=== PATIENT | male | born 2000 | race Caucasian/White ===

== ENCOUNTER 2024-12-20 07:52 | Outpatient (REF) | payer BC, SELFPAY ==
--- NOTE | ~2024-12-20 | US_ITS ---
EXAMINATION: US SCROTUM CLINICAL INFORMATION: Lump, left testicle. COMPARISON: None available. TECHNIQUE: A sonogram of the scrotum was performed assessing rea-scale appearance and color Doppler flow. Spectral Doppler analysis of the arterial and venous flow were performed in the testes bilaterally. FINDINGS: RIGHT: Right testicle measures 4.7 x 2.2 x 3.2 cm, volume 17 mL. No focal testicular parenchymal lesions are visualized. Spectral Doppler analysis of the arterial and venous flow is normal in the right testis. Right epididymal head is normal in size. No right hydrocele or varicocele is seen. Right epididymal Doppler flow is normal. LEFT: Left testicle measures 5.0 x 2.3 x 3.2 cm, volume 19 mL. No focal testicular parenchymal lesions are visualized. Spectral Doppler analysis of the arterial and venous flow is normal in the left testis. Left epididymal head is normal in size. No left hydrocele or varicocele is seen. Left epididymal Doppler flow is normal. US/US scrotum IMPRESSION: Normal testicular ultrasound. Electronically signed by: Josh Jones MD 12/21/2024 12:35 PM EDT
--- OUTSIDE RECORDS SUMMARY | 2024-12-20 07:58 | XMS_ITS | Data Portability ---
Author Organization [place] - .[facility], [facility] Address [address] [place] [address] Care Team Providers Care Membership Advisor Name Role Phone FRANCISCA DIAMOND Primary Care Provider Assessment No assessment recorded. Plan of Treatment Reminders Order Date Submit Date Provider Last Modified By Organization Details Last Modified Time Details Appointments Physical Examinati on 2024 02:00P Rian Jarrett MD Not available Not available Not available Lab enteric bacteria, organism specific culture, stool 2023 024 [facility], [address], [place], [address], 04/10/2024 07:36:33 calprotec tin, stool 2023 024 [facility], [address], [place], [address], 04/10/2024 13:44:11 HIV 1+2 AB + HIV 1 p24 Ag, qualitati ve immunoass ay, serum 2023 024 [facility], [address], [place], [address], 03/31/2024 03:36:30 chlamydia + gonorrhea RNA, QL, unspecifi ed specimen 2023 024 [facility], [address], [place], [address], 03/31/2024 13:06:09 hsv (1+2) igg Ab, serum 2023 [facility], [address], [place], [address], 03/31/2024 11:51:49 syphilis Ab, igg 2023 [facility], [address], [place], [address], 03/31/2024 03:53:22 hepatitis B surface Ab, quantitat sam, serum 2023 [facility], [address], [place], [address], 03/31/2024 03:53:28 CMP, serum or plasma 2023 [facility], [address], [place], [address], 03/31/2024 03:53:11 CBC w/ auto diff [facility]23 [facility], [address], [place], [address], 03/31/2024 01:42:20 lipid panel, serum 2023 [facility], [address], [place], [address], 03/31/2024 03:53:14 TSH, serum or plasma [facility]23 [facility], [address], [place], [address], 03/31/2024 03:24:45 urinalysi s, complete 2023 [facility], [address], [place], [address], 03/30/2024 23:54:15 HbA1c (hemoglob in A1c), blood 2023 024 [facility], [address], [place], [address], 03/31/2024 05:47:53 hepatitis C virus Ab, serum 2023 024 [facility], [address], [place], [address], 03/31/2024 03:53:31 enteric bacteria, organism specific culture, stool 2022 023 [facility], [address], [place], [address], 09/16/2022 10:25:14 calprotec tin, stool 2022 023 [facility], [address], [place], [address], 09/19/2022 10:55:59 TSH, serum or plasma 2022 023 [facility], [address], [place], [address], 09/10/2022 21:50:18 ESR (erythroc yte sedimenta tion rate), blood 2022 023 [facility], [address], [place], [address], 09/10/2022 22:00:41 C-reactiv e protein, quantitat sam, serum or plasma 2022 023 [facility], [address], [place], [address], 09/10/2022 21:50:15 pancreati c elastase, stool 2022 023 [facility], [address], [place], [address], 09/19/2022 17:04:45 CBC w/ auto diff 2022 023 [facility], [address] [place], [address], 09/10/2022 21:34:36 tissue transglut aminase iga Ab, serum 2022 023 [facility], [address], [place], [address], 09/12/2022 12:04:10 tissue transglut aminase igg Ab, serum 2022 023 [facility], [address] [place], [address], 09/12/2022 12:04:18 Referral None recorded. Procedures None recorded. Surgeries None recorded. Imaging XR, abdomen 2022 023 [facility], [address] [facility], [place], [address], 09/10/2022 16:49:32 Medication Orders None recorded. Patient TargetsNo targets recorded. Patient InstructionsNo instructions recorded. Reason for Referral None Reported. Results Created Date Observation Date Name Description Value Unit Range Abnormal Flag Note LastModifiedBy Organization Detail LastModifiedTime 09/10/1909/10/2022 CBC WITH DIFFE RENTI AL white blood cells 9.78 10^3/ uL 3.60 - 9.90 normal Not Available [facility] [address], [place], [address], 09/10/2022 21:34:35 09/10/19 23 09/10/2022 CBC WITH DIFFE RENTI AL red blood cells 5.52 10^6/ uL 4.32 - 5.71 normal Not Available [facility] [address] [place], [address], 09/10/2022 21:34:35 09/10/19 23 09/10/2022 CBC WITH DIFFE RENTI AL NRBC % 0.0 NRBC/ 100_W BC <1.0 normal Not Available [facility] [address], [address], 09/10/2022 21:34:35 09/10/19 23 09/10/2022 CBC WITH DIFFE RENTI AL hemoglobin 16.6 g/dL 13.0 - 16.6 normal Not Available [facility] [address] [place], [address], 09/10/2022 21:34:35 09/10/19 23 09/10/2022 CBC WITH DIFFE RENTI AL hematocrit 48.1 % 40.0 - 49.0 normal Not Available [facility] [address] [place], [address], 09/10/2022 21:34:35 09/10/19 23 09/10/2022 CBC WITH DIFFE RENTI AL platelet count 379 10^3/ uL 158 - 384 normal Not Available [facility] [address], [address], 09/10/2022 21:34:35 09/10/19 23 09/10/2022 CBC WITH DIFFE RENTI AL MCV 87.1 fL 76.0 - 98.0 normal Not Available [facility] [address] [place], [address], 09/10/2022 21:34:35 09/10/19 23 09/10/2022 CBC WITH DIFFE RENTI AL MCH 30.1 pg 26.7 - 33.2 normal Not Available [facility] [address] [place], [address], 09/10/2022 21:34:35 09/10/19 23 09/10/2022 CBC WITH DIFFE RENTI AL MCHC 34.5 g/dL 32.3 - 36.1 normal Not Available [facility] [address] [place], [address], 09/10/2022 21:34:35 09/10/19 23 09/10/2022 CBC WITH DIFFE RENTI AL RDW-CV 12.8 % 12.0 - 14.8 normal Not Available [facility] [address] [place] [address], [address], 09/10/2022 21:34:35 09/10/19 23 09/10/2022 CBC WITH DIFFE RENTI AL MPV 8.5 fL 8.9 - 12.5 low Not Available [facility] [address] [place] [address], [address], 09/10/2022 21:34:35 09/10/19 23 09/10/2022 CBC WITH DIFFE RENTI AL neutrophils % 54.4 % 38.0 - 73.0 normal Not Available [facility] [address] [place] [address], [address], 09/10/2022 21:34:35 09/10/19 23 09/10/2022 CBC WITH DIFFE RENTI AL lymphocyte % 27.3 % 17.0 - 48.0 normal Not Available [facility] [address] [place] [address], [address], 09/10/2022 21:34:35 09/10/19 23 09/10/2022 CBC WITH DIFFE RENTI AL monocyte % 15.2 % 6.0 - 13.0 high Not Available [facility] [address] [place] [address], [address], 09/10/2022 21:34:35 09/10/19 23 09/10/2022 CBC WITH DIFFE RENTI AL eosinophil auto % 1.5 % 1.0 - 8.0 normal Not Available [facility] [address] [place] [address], [address], 09/10/2022 21:34:35 09/10/19 23 09/10/2022 CBC WITH DIFFE RENTI AL basophil auto % 0.7 % 0.0 - 1.0 normal Not Available [facility] [address] [place] [address], [address], 09/10/2022 21:34:35 09/10/19 23 09/10/2022 CBC WITH DIFFE RENTI AL neutrophil auto absolute 5.31 10^3/ uL 1.66 - 6.42 normal Not Available [facility] [address] [place], [address], 09/10/2022 21:34:35 09/10/19 23 09/10/2022 CBC WITH DIFFE RENTI AL lymphocytes auto absolute 2.67 10^3/ uL 0.90 - 3.20 normal Not Available [facility] [address] [place], [address], 09/10/2022 21:34:35 09/10/19 23 09/10/2022 CBC WITH DIFFE RENTI AL monocytes auto absolute 1.49 10^3/ uL 0.29 - 0.86 high Not Available [facility] [address] [place], [address], 09/10/2022 21:34:35 09/10/19 23 09/10/2022 CBC WITH DIFFE RENTI AL eosinophils auto absolute 0.15 10^3/ uL 0.04 - 0.56 normal Not Available [facility] [address], [address], 09/10/2022 21:34:35 09/10/19 23 09/10/2022 CBC WITH DIFFE RENTI AL basophil auto absolute 0.07 10^3/ uL 0.01 - 0.07 normal Not Available [facility] [address] [place], [address], 09/10/2022 21:34:35 09/10/19 23 09/10/2022 C-KERON CTIVE PROTE IN C-reactive protein 20.6 mg/L <5.0 high Not Available [facility] b [address] [place], [address], 09/10/2022 21:50:15 09/10/19 23 09/10/2022 TSH REFLE X FT4 TSH 1.320 uIU/m L 0.270 - 4.200 normal Not Available [facility] [address] [place], [place] [address], [address], 09/10/2022 21:50:18 09/10/19 23 09/10/2022 SED RATE (ESR) ESR 23 mm/HR 0 - 10 high Not Available [facility] [address] [place] [address], [address], 09/10/2022 22:00:41 09/10/19 23 09/12/2022 TISSU E TRANS GLUTA BEATA E AB IGA tissue transglutami nase Ab IgA <0.5 U/mL <15.0 normal Value Inter preta tion <15.0 Antib kirti Not Detec denae > or = 15.0 Antib kirti Detec denae Not Available [facility] [address] [place] [address], [address], 09/12/2022 12:04:10 09/10/19 23 09/12/2022 TISSU E TRANS GLUTA BEATA E AB IGG tissue transglutami nase Ab IgG <0.8 U/mL <15.0 normal Value Inter preta tion <15.0 Antib kirti Not Detec denae > or = 15.0 Antib kirti Detec denae Not Available [facility] [address] [place] [address], [address], 09/12/2022 12:04:18 09/12/19 23 09/15/2022 GASTR OINTE DONTE L PANEL RT-PC R campylobacte r(jejuni, coli & upsaliensis DETECT ED not detect ed critical abnormal Flores d on 2022 at 9:34A M to NELY dickerson Strel ec with read back confi rmati on by Hamlet Gilliland repor denae the [facility] tment of Healt h Case #: [id number] 308 2022 5:20 PM Not Available [facility] [address] [place] [address], [place], [address], 09/20/2022 17:21:09 09/12/19 23 09/15/2022 GASTR OINTE DONTE L PANEL RT-PC R clostridium difficile (toxin A/B) NOT DETECT ED not detect ed normal Not Available [facility] [address], [address], 09/20/2022 17:21:09 09/12/19 23 09/15/2022 GASTR OINTE DONTE L PANEL RT-PC R plesiomonas shigelloides NOT DETECT ED not detect ed normal Not Available [facility] [address], [address], 09/20/2022 17:21:09 09/12/19 23 09/15/2022 GASTR OINTE DONTE L PANEL RT-PC R salmonella NOT DETECT ED not detect ed normal Not Available [facility] [address], [address], 09/20/2022 17:21:09 09/12/19 23 09/15/2022 GASTR OINTE DONTE L PANEL RT-PC R vibrio(parah aemolyticus & vulnificus) NOT DETECT ED not detect ed normal Not Available [facility] [address], [address], 09/20/2022 17:21:09 09/12/19 23 09/15/2022 GASTR OINTE DONTE L PANEL RT-PC R vibrio cholerae NOT DETECT ED not detect ed normal Not Available [facility] [address], [address], 09/20/2022 17:21:09 09/12/19 23 09/15/2022 GASTR OINTE DONTE L PANEL RT-PC R yersinia enterocoliti ca NOT DETECT ED not detect ed normal Not Available [facility] [address], [address], 09/20/2022 17:21:09 09/12/19 23 09/15/2022 GASTR OINTE DONTE L PANEL RT-PC R enteroaggreg ative E. coli (eaec) NOT DETECT ED not detect ed normal Not Available [facility] [address], [address], 09/20/2022 17:21:09 09/12/19 23 09/15/2022 GASTR OINTE DONTE L PANEL RT-PC R enterotoxige josi E. coli (etec) lt/st DETECT ED not detect ed abnormal Not Available [facility] [address] [place], [address], 09/20/2022 17:21:09 09/12/19 23 09/15/2022 GASTR OINTE DONTE L PANEL RT-PC R shiga-like toxin-produc ting E.coli(stec) stx1/2 DETECT ED not detect ed critical abnormal Flores d on 2022 at 9:35A M to NELY Don ec with read back confi rmati on by Hamlet Gilliland [facility] Case: [id number] 2022 5:20 PM Not Available [facility] [address], [address], 09/20/2022 17:21:09 09/12/19 23 09/15/2022 GASTR OINTE DONTE L PANEL RT-PC R shigella/ent eroinvasive E.coli (eiec) NOT DETECT ED not detect ed normal Not Available [facility] [address] [place], [address], 09/20/2022 17:21:09 09/12/19 23 09/15/2022 GASTR OINTE DONTE L PANEL RT-PC R cryptosporid ium NOT DETECT ED not detect ed normal Not Available [facility] [address], [address], 09/20/2022 17:21:09 09/12/19 23 09/15/2022 GASTR OINTE DONTE L PANEL RT-PC R cyclospora cayetanensis NOT DETECT ED not detect ed normal Not Available [facility] [address], [address], 09/20/2022 17:21:09 09/12/19 23 09/15/2022 GASTR OINTE DONTE L PANEL RT-PC R entamoeba histolytica NOT DETECT ED not detect ed normal Not Available [facility] [address], [address], 09/20/2022 17:21:09 09/12/19 23 09/15/2022 GASTR OINTE DONTE L PANEL RT-PC R giardia lamblia NOT DETECT ED not detect ed normal Not Available [facility] [address], [address], 09/20/2022 17:21:09 09/12/19 23 09/15/2022 GASTR OINTE DONTE L PANEL RT-PC R adenovirus F 40/41 NOT DETECT ED not detect ed normal Not Available [facility] [address], [address], 09/20/2022 17:21:09 09/12/19 23 09/15/2022 GASTR OINTE DONTE L PANEL RT-PC R astrovirus NOT DETECT ED not detect ed normal Not Available [facility] [address], [address], 09/20/2022 17:21:09 09/12/19 23 09/15/2022 GASTR OINTE DONTE L PANEL RT-PC R norovirus GI/gii DETECT ED not detect ed abnormal Not Available [facility] [address], [address], 09/20/2022 17:21:09 09/12/19 23 09/15/2022 GASTR OINTE DONTE L PANEL RT-PC R rotavirus A NOT DETECT ED not detect ed normal Not Available [facility] [address], [address], 09/20/2022 17:21:09 09/12/19 23 09/15/2022 GASTR OINTE DONTE L PANEL RT-PC R sapovirus(I, II,IV & V) NOT DETECT ED not detect ed normal Not Available [facility] [address] [place], [address], 09/20/2022 17:21:09 09/12/19 23 09/15/2022 GASTR OINTE DONTE L PANEL RT-PC R E.coli O157 NOT DETECT ED not detect ed normal Not Available [facility] [address] [facility], [place], [address], 09/20/2022 17:21:09 09/12/19 23 09/19/2022 CALPR OTECT IN STOOL calprotectin , stool 3000 mcg/g high Refer ence Range : <50 Melisa l 50-12 0 Borde rline >120 [place] denae Calpr otect in in Crohn 's disea se and ulcer ative colit is can be five to sever al thous and times above the refer ence popul ation (50 mcg/g or less) . Level s are usual ly 50 mcg/g or less in healt hy patie nts and with irrit able bowel syndr ome. Repea t testi ng in 4-6 weeks is seth balderas for borde rline value s. Not Available [facility] [address], [place], [address], 09/19/2022 10:55:58 09/12/19 23 09/19/2022 PANCR EATIC ELAST ASE-1 STOOL pancreatic elastase-1 >500 mcg/g Adult and Pedia tric Refer ence Range s for Pancr eatic Elast ase-1 : Melisa l: >200 mcg/g Moder ate Pancr eatic Insuf ficie ncy: 100-2 00 mcg/g Sever e Pancr eatic Insuf ficie ncy: <100 mcg/g Elast ase-1 (E-1) assay resul ts are expre ssed in mcg/g , which repre sent mcg E1/g feces . It is not timi candelario to inter rupt enzym e subst ituti on thera py. Not Available [facility] [address], [place], [address], 09/19/2022 17:04:45 09/26/19 23 09/28/2022 CALPR OTECT IN STOOL calprotectin , stool 77 ug/g <50 high <50 ug/g - Melisa l 50 - 120 ug/g - Borde rline >120 ug/g - [place] denae Re-ev aluat ion of borde rline fecal calpr otect in level s after 4-6 weeks is recom taj d to deter mine the infla mmato ry statu s. This decis ion shoul d be made by the clini claus in conju nctio n with the patie nt's clini lucero sympt oms, medic al histo ry, and other clini lucero and labor atory findi ngs. Not Available [facility] [address], [place], [address], 09/29/2022 13:22:46 09/26/19 23 09/29/2022 GASTR OINTE DONTE L PANEL RT-PC R campylobacte r(jejuni, coli & upsaliensis DETECT ED not detect ed critical abnormal Not Available [facility] [address], [place], [address], 09/29/2022 20:59:35 09/26/19 23 09/29/2022 GASTR OINTE DONTE L PANEL RT-PC R clostridium difficile (toxin A/B) NOT DETECT ED not detect ed normal Not Available [facility] [address], [address], 09/29/2022 20:59:35 09/26/19 23 09/29/2022 GASTR OINTE DONTE L PANEL RT-PC R plesiomonas shigelloides NOT DETECT ED not detect ed normal Not Available [facility] [address], [address], 09/29/2022 20:59:35 09/26/19 23 09/29/2022 GASTR OINTE DONTE L PANEL RT-PC R salmonella NOT DETECT ED not detect ed normal Not Available [facility] [address], [address], 09/29/2022 20:59:35 09/26/19 23 09/29/2022 GASTR OINTE DONTE L PANEL RT-PC R vibrio(parah aemolyticus & vulnificus) NOT DETECT ED not detect ed normal Not Available [facility] [address] [address] [place], [address], 09/29/2022 20:59:35 09/26/19 23 09/29/2022 GASTR OINTE DONTE L PANEL RT-PC R vibrio cholerae NOT DETECT ED not detect ed normal Not Available [facility] [address], [address], 09/29/2022 20:59:35 09/26/19 23 09/29/2022 GASTR OINTE DONTE L PANEL RT-PC R yersinia enterocoliti ca NOT DETECT ED not detect ed normal Not Available [facility] [address], [address], 09/29/2022 20:59:35 09/26/19 23 09/29/2022 GASTR OINTE DONTE L PANEL RT-PC R enteroaggreg ative E. coli (eaec) NOT DETECT ED not detect ed normal Not Available [facility] [address] [address] [place], [address], 09/29/2022 20:59:35 09/26/19 23 09/29/2022 GASTR OINTE DONTE L PANEL RT-PC R enteropathog enic E. coli (epec) NOT DETECT ED not detect ed normal Not Available [facility] [address] [place], [place] [address], [address], 09/29/2022 20:59:35 09/26/19 23 09/29/2022 GASTR OINTE DONTE L PANEL RT-PC R enterotoxige josi E. coli (etec) lt/st NOT DETECT ED not detect ed normal Not Available [facility] [address], [address], 09/29/2022 20:59:35 09/26/19 23 09/29/2022 GASTR OINTE DONTE L PANEL RT-PC R shiga-like toxin-produc ting E.coli(stec) stx1/2 DETECT ED not detect ed critical abnormal Not Available [facility] [address], [address], 09/29/2022 20:59:35 09/26/19 23 09/29/2022 GASTR OINTE DONTE L PANEL RT-PC R shigella/ent eroinvasive E.coli (eiec) NOT DETECT ED not detect ed normal Not Available [facility] [address], [address], 09/29/2022 20:59:35 09/26/19 23 09/29/2022 GASTR OINTE DONTE L PANEL RT-PC R cryptosporid ium NOT DETECT ED not detect ed normal Not Available [facility] [address], [address], 09/29/2022 20:59:35 09/26/19 23 09/29/2022 GASTR OINTE DONTE L PANEL RT-PC R cyclospora cayetanensis NOT DETECT ED not detect ed normal Not Available [facility] [address], [address], 09/29/2022 20:59:35 09/26/19 23 09/29/2022 GASTR OINTE DONTE L PANEL RT-PC R entamoeba histolytica NOT DETECT ED not detect ed normal Not Available [facility] [address], [address], 09/29/2022 20:59:35 09/26/19 23 09/29/2022 GASTR OINTE DONTE L PANEL RT-PC R giardia lamblia NOT DETECT ED not detect ed normal Not Available [facility] [address], [address], 09/29/2022 20:59:35 09/26/19 23 09/29/2022 GASTR OINTE DONTE L PANEL RT-PC R adenovirus F 40/41 NOT DETECT ED not detect ed normal Not Available [facility] [address], [address], 09/29/2022 20:59:35 09/26/19 23 09/29/2022 GASTR OINTE DONTE L PANEL RT-PC R astrovirus NOT DETECT ED not detect ed normal Not Available [facility] [address], [address], 09/29/2022 20:59:35 09/26/19 23 09/29/2022 GASTR OINTE DONTE L PANEL RT-PC R norovirus GI/gii NOT DETECT ED not detect ed normal Not Available [facility] [address], [address], 09/29/2022 20:59:35 09/26/19 23 09/29/2022 GASTR OINTE DONTE L PANEL RT-PC R rotavirus A NOT DETECT ED not detect ed normal Not Available [facility] [address], [address], 09/29/2022 20:59:35 09/26/19 23 09/29/2022 GASTR OINTE DONTE L PANEL RT-PC R sapovirus(I, II,IV & V) NOT DETECT ED not detect ed normal Not Available [facility] [address], [address], 09/29/2022 20:59:35 03/30/20 24 03/30/2024 URINA LYSIS W/CHILO WENDY PIC color LIGHT- YELLOW colorl ess-ye llow normal Not Available [facility] [address], [address], 03/30/2024 23:54:14 03/30/20 24 03/30/2024 URINA LYSIS W/CHILO WENDY PIC clarity CLEAR clear- SL. cloudy normal Not Available [facility] [address], [place], [address], 03/30/2024 23:54:14 03/30/20 24 03/30/2024 URINA LYSIS W/CHILO WENDY PIC pH, urine 6.5 4.5-8. 0 normal Not Available [facility] [address], [place], [address], 03/30/2024 23:54:14 03/30/20 24 03/30/2024 URINA LYSIS W/CHILO WENDY PIC specific gravity 1.017 1.000- 1.030 normal Not Available [facility] [address], [address], 03/30/2024 23:54:14 03/30/20 24 03/30/2024 URINA LYSIS W/CHILO WENDY PIC protein NEGATI VE mg/dL negati ve/tra ce normal Not Available [facility] [address], [address], 03/30/2024 23:54:14 03/30/20 24 03/30/2024 URINA LYSIS W/CHILO WENDY PIC glucose 0 mg/dL 0-69 normal Not Available [facility] [address], [address], 03/30/2024 23:54:14 03/30/20 24 03/30/2024 URINA LYSIS W/CHILO [facility] P[facility] ketones NEGATI VE mg/dL negati ve normal Not Available [facility] [address], [place], [address], 03/30/2024 23:54:14 03/30/20 24 03/30/2024 URINA LYSIS W/[facility]O [facility] P[facility] leukocyte esterase 0 daniel/u L 0-74 normal Not Available [facility] [address], [place], [address], 03/30/2024 23:54:14 03/30/20 24 03/30/2024 URINA LYSIS W/CHILO W[facility]Y PIC blood 0 mg/dL 0-0.05 normal Not Available [facility] [address], [address], 03/30/2024 23:54:14 03/30/20 24 03/30/2024 URINA LYSIS W/CHILO WENDY PIC nitrite NEGATI VE negati ve normal Not Available [facility] [address] [place], [address], 03/30/2024 23:54:14 03/30/20 24 03/30/2024 URINA LYSIS W/CHILO WENDY PIC bilirubin 0 mg/dL 0-0.4 normal Not Available [facility] [address] [place], [address], 03/30/2024 23:54:14 03/30/20 24 03/30/2024 URINA LYSIS W/CHILO WENDY PIC urobilinogen 0 E.U./ dL 0-1 normal Not Available [facility] [address] [place], [address], 03/30/2024 23:54:14 03/30/20 24 03/30/2024 URINA LYSIS W/CHILO WENDY PIC urine white blood cells 0-5 /hpf 0-5 normal Not Available [facility] [address] [place], [address], 03/30/2024 23:54:14 03/30/20 24 03/30/2024 URINA LYSIS W/CHILO WENDY PIC urine red blood cells 0-3 /hpf 0-3 normal Not Available [facility] [address] [place], [address], 03/30/2024 23:54:14 03/30/20 24 03/30/2024 URINA LYSIS W/CHILO WENDY PIC epithelial cells 0 /hpf 0-6 normal Not Available [facility] [address] [place], [address], 03/30/2024 23:54:14 03/30/20 24 03/30/2024 URINA LYSIS W/CHILO WENDY PIC bacteria 0 /hpf 0-few normal Not Available [facility] [address] [place], [address], 03/30/2024 23:54:14 03/30/20 24 03/30/2024 URINA LYSIS W/CHILO WENDY PIC mucus threads FEW /lpf none/f ew normal Not Available [facility] [address] [place], [address], 03/30/2024 23:54:14 03/30/20 24 03/31/2024 CBC WITH DIFFE RENTI AL white blood cells 5.50 10^3/ uL 3.60 - 10.50 normal Not Available [facility] [address] [place], [address], 03/31/2024 01:42:20 03/30/20 24 03/31/2024 CBC WITH DIFFE RENTI AL red blood cells 5.56 10^6/ uL 4.32 - 5.71 normal Not Available [facility] [address] [place], [address], 03/31/2024 01:42:20 03/30/20 24 03/31/2024 CBC WITH DIFFE RENTI AL NRBC % 0.0 NRBC/ 100_W BC <1.0 normal Not Available [facility] [address] [place], [address], 03/31/2024 01:42:20 03/30/20 24 03/31/2024 CBC WITH DIFFE RENTI AL hemoglobin 16.7 g/dL 13.0 - 16.6 high Not Available [facility] [address] [place], [address], 03/31/2024 01:42:20 03/30/20 24 03/31/2024 CBC WITH DIFFE RENTI AL hematocrit 50.6 % 40.0 - 49.0 high Not Available [facility] [address] [place], [address], 03/31/2024 01:42:20 03/30/2003/31/2024 CBC WITH DIFFE RENTI AL platelet count 297 10^3/ uL 140 - 400 normal Not Available [facility] [place], [address], 03/31/2024 01:42:20 03/30/20 24 03/31/2024 CBC WITH DIFFE RENTI AL MCV 91.0 fL 76.0 - 98.0 normal Not Available [facility] [address] [place], [address], 03/31/2024 01:42:20 03/30/20 24 03/31/2024 CBC WITH DIFFE RENTI AL MCH 30.0 pg 26.7 - 33.2 normal Not Available [facility] [place], [address], 03/31/2024 01:42:20 03/30/20 24 03/31/2024 CBC WITH DIFFE RENTI AL MCHC 33.0 g/dL 32.3 - 36.1 normal Not Available [facility] [place], [address], 03/31/2024 01:42:20 03/30/2003/31/2024 CBC WITH DIFFE RENTI AL RDW-CV 12.9 % 12.0 - 14.8 normal Not Available [facility] [place], [address], 03/31/2024 01:42:20 03/30/20 24 03/31/2024 CBC WITH DIFFE RENTI AL MPV 9.2 fL 8.9 - 12.5 normal Not Available [facility] [address], [place], [address], 03/31/2024 01:42:20 03/30/20 24 03/31/2024 CBC WITH DIFFE RENTI AL neutrophils % 41.3 % not estab. normal Not Available [facility] [address] [place], [address], 03/31/2024 01:42:20 03/30/20 24 03/31/2024 CBC WITH DIFFE RENTI AL lymphocyte % 46 % not estab. normal Not Available [facility] [place], [address], 03/31/2024 01:42:20 03/30/20 24 03/31/2024 CBC WITH DIFFE RENTI AL monocyte % 8.9 % not estab. normal Not Available [facility] [address] [place], [address], 03/31/2024 01:42:20 03/30/20 24 03/31/2024 CBC WITH DIFFE RENTI AL eosinophil auto % 2.9 % not estab. normal Not Available [facility] [address] [place], [address], 03/31/2024 01:42:20 03/30/20 24 03/31/2024 CBC WITH DIFFE RENTI AL basophil auto % 0.7 % not estab. normal Not Available [facility] [place] [place], [address], 03/31/2024 01:42:20 03/30/20 24 03/31/2024 CBC WITH DIFFE RENTI AL neutrophil auto absolute 2.3 10^3/ uL 1.7 - 6.4 normal Not Available [facility] [place], [address], 03/31/2024 01:42:20 03/30/20 24 03/31/2024 CBC WITH DIFFE RENTI AL lymphocytes auto absolute 2.5 10^3/ uL 0.9 - 3.2 normal Not Available [facility] [address] [place], [address], 03/31/2024 01:42:20 03/30/20 24 03/31/2024 CBC WITH DIFFE RENTI AL monocytes auto absolute 0.5 10^3/ uL 0.3 - 0.9 normal Not Available [facility] [address] [place], [address], 03/31/2024 01:42:20 03/30/20 24 03/31/2024 CBC WITH DIFFE RENTI AL eosinophils auto absolute 0.2 10^3/ uL 0.0 - 0.6 normal Not Available [facility] [address] [place], [address], 03/31/2024 01:42:20 03/30/20 24 03/31/2024 CBC WITH DIFFE RENTI AL basophil auto absolute 0.0 10^3/ uL 0.0 - 0.1 normal Not Available [facility] [address] [place], [address], 03/31/2024 01:42:20 03/30/2003/31/2024 TSH REFLE X FT4 TSH 2.180 uIU/m L 0.270 - 4.200 normal Not Available [facility] [address] [place], [address], 03/31/2024 03:24:45 03/30/20 24 03/31/2024 HIV SCREE N 4TH GENER ATION WRFX HIV duo NONREA CTIVE nonrea ctive normal Elecs ys HIV Duo is an elect mei milum inesc ence immun oassa y ECLIA and is perfo rmed on the Lindy e801 immun oassa y geena zer. Not Available [facility] [address], [place], [address], 03/31/2024 03:36:30 03/30/20 24 03/31/2024 COMPR EHENS SAM METAB OLIC PANEL glucose, fasting 90 mg/dL 70 - 99 normal This patie nt was fasti ng. Not Available [facility] [address], [place], [address], 03/31/2024 03:53:11 03/30/20 24 03/31/2024 COMPR EHENS SAM METAB OLIC PANEL blood urea nitrogen 16 mg/dL 9 - 25 normal Not Available [facility] [address], [place], [address], 03/31/2024 03:53:11 03/30/20 24 03/31/2024 COMPR EHENS SAM METAB OLIC PANEL creatinine 1.00 mg/dL 0.73 - 1.32 normal Not Available [facility] [address], [place], [address], 03/31/2024 03:53:11 03/30/20 24 03/31/2024 COMPR EHENS SAM METAB OLIC PANEL glomerular filtration rate 110 mL/mi n/1.7 3m^2 >=60 normal Medic al Direc tor's Note: Effec tive (05/31), [facility] uses the 2020 CKD-E PI creat inine equat ion witho ut a race facto r to calcu late and repor t eGFR resul ts. Not Available [facility] [address], [place], [address], 03/31/2024 03:53:11 03/30/20 24 03/31/2024 COMPR EHENS SAM METAB OLIC PANEL sodium 138 mmol/ L 136 - 145 normal Not Available [facility] [address] [place], [address], 03/31/2024 03:53:11 03/30/20 24 03/31/2024 COMPR EHENS SAM METAB OLIC PANEL potassium 4.2 mmol/ L 3.5 - 5.3 normal Not Available [facility] [address] [place], [address], 03/31/2024 03:53:11 03/30/20 24 03/31/2024 COMPR EHENS SAM METAB OLIC PANEL chloride 101 mmol/ L 98 - 107 normal Not Available [facility] [address] [place], [address], 03/31/2024 03:53:11 03/30/20 24 03/31/2024 COMPR EHENS SAM METAB OLIC PANEL carbon dioxide 25 mmol/ L 21 - 32 normal Not Available [facility] [address] [place], [address], 03/31/2024 03:53:11 03/30/20 24 03/31/2024 COMPR EHENS SAM METAB OLIC PANEL anion gap 12 (calc ) 7 - 15 normal Not Available [facility] [address] [place], [address], 03/31/2024 03:53:11 03/30/20 24 03/31/2024 COMPR EHENS SAM METAB OLIC PANEL calcium 10.2 mg/dL 8.7 - 10.3 normal Not Available [facility] [address] [place], [address], 03/31/2024 03:53:11 03/30/20 24 03/31/2024 COMPR EHENS SAM METAB OLIC PANEL total protein 7.8 g/dL 6.0 - 8.3 normal Not Available [facility] [address] [place], [address], 03/31/2024 03:53:11 03/30/20 24 03/31/2024 COMPR EHENS SAM METAB OLIC PANEL albumin 5.1 g/dL 3.5 - 5.2 normal Not Available [facility] [address] [place], [address], 03/31/2024 03:53:11 03/30/20 24 03/31/2024 COMPR EHENS SAM METAB OLIC PANEL total bilirubin 1.60 mg/dL <=1.20 high Not Available [facility] [address] [place], [address], 03/31/2024 03:53:11 03/30/20 24 03/31/2024 COMPR EHENS SAM METAB OLIC PANEL alkaline phosphatase 104 U/L 37 - 144 normal Not Available [facility] [address] [place], [address], 03/31/2024 03:53:11 03/30/20 24 03/31/2024 COMPR EHENS SAM METAB OLIC PANEL SGOT (AST) 20 U/L 0 - 40 normal Not Available [facility] [address] [place], [address], 03/31/2024 03:53:11 03/30/20 24 03/31/2024 COMPR EHENS SAM METAB OLIC PANEL SGPT (ALT) 19 U/L <41 normal Not Available [facility] [address] [place], [address], 03/31/2024 03:53:11 03/30/20 24 03/31/2024 LIPID PANEL cholesterol 198 mg/dL <200 normal Expec denae Value s: <200 mg/dL Adalgisa eable 200-2 40 mg/dL Borde rline >240 mg/dL High Risk Not Available [facility] [address] [place], [address], 03/31/2024 03:53:14 03/30/20 24 03/31/2024 LIPID PANEL HDLC 70 mg/dL A HDL level of >=60 mg/dL is consi dered prote ctive again st heart disea se and count s as a nega tive risk facto r. Its prese nce remov es one risk facto r from the total count . Not Available [facility] [address], [place], [address], 03/31/2024 03:53:14 03/30/20 24 03/31/2024 LIPID PANEL triglyceride 52 mg/dL <150 normal Expec denae Value s: <150 mg/dL Melisa l 150-1 99 mg/dL Borde rline 200-4 99 mg/dL High >=500 mg/dL Very High Not Available [facility] [address], [place], [address], 03/31/2024 03:53:14 03/30/2003/31/2024 LIPID PANEL calculated LDL 115 mg/dL 0 - 99 high Adalgisa able range <100 mg/dL for prima ry preve ntion ;<70 mg/dL for patie nts with CHD or diabe tic patie nts with > or = 2 CHD risk facto rs. Effec tive 12/22 , [facility] uses the Harini n-Hop kins calcu latio n for LDL-C , which is a valid ated novel metho d provi ding gregg r accur acy than the Fried devon equat ion in the estim ation of LDL-C . Not Available [facility] [address], [place], [address], 03/31/2024 03:53:14 03/30/20 24 03/31/2024 LIPID PANEL non-HDL 128.0 mg/dL _(lucero c) Not Available [facility] [address], [address], 03/31/2024 03:53:14 03/30/2003/31/2024 LIPID PANEL chol/HDL 3 ratio _(lucero c) 0 - 5 normal Not Available [facility] [address], [place], [address], 03/31/2024 03:53:14 03/30/20 24 03/31/2024 LIPID PANEL LDL/HDL 1.7 ratio _(lucero c) 0.0 - 3.2 normal Not Available [facility] [address] [place], [address], 03/31/2024 03:53:14 03/30/20 24 03/31/2024 SYPHI LIS SCREE N/REF SHANKAR TO RPR T. pallidum antibody NEGATI VE negati ve normal No antib odies to T. palli dum (the agent causi ng Syphi lis) were detec denae in the speci men. This resul t, does not exclu de very recen t T. palli dum infec tion; testi ng of a secon d speci men, colle cted two to four weeks after this speci men, is recom taj d if the index of the suspi cion for recen t infec tion is high. Not Available [facility] [address], [address], 03/31/2024 03:53:22 03/30/20 24 03/31/2024 HEP B SURFA CE AB QNT/I MMUNI TY hepatitis B surface antibody NONREA CTIVE reacti ve abnormal Not Available [facility] [address], [place], [address], 03/31/2024 03:53:28 03/30/20 24 03/31/2024 HEP B SURFA CE AB QNT/I MMUNI TY hepatitis B surface Ab immunity, qn 5.80 mIU/m L >=11.5 0 low Indiv idual is consi dered to be NOT immun e to infec tion with HBV. Not Available [facility] [address], [address], 03/31/2024 03:53:28 03/30/20 24 03/31/2024 HEP C ANTIB KIRTI hepatitis C antibody NONREA CTIVE nonrea ctive normal Testi ng perfo rmed on Mei ECLIA metho dolog y. Not Available [facility] [address], [address], 03/31/2024 03:53:31 03/30/20 24 03/31/2024 HEMOG LOBIN A1C hemoglobin A1C 5.4 % <5.7 normal The follo wing range s may be used for inter preta tion of resul ts: 5.7% - 6.4% High Risk for futur e diabe guanakito >/= 6.5% Diabe guanakito <7.0% Adalgisa able for non pregn ant adult s with diabe guanakito Not Available [facility] [address] [place] [address], [address], 03/31/2024 05:47:53 03/30/20 24 03/31/2024 HEMOG LOBIN A1C adag 109 Est Avg Gluco se A1c% mg/dL 7 123-1 85 8 147-2 17 9 170-2 49 10 193-2 82 11 217-3 14 Not Available [facility] [address] [place] [address], [place], [address], 03/31/2024 05:47:53 03/30/20 24 03/31/2024 HSV 1 & 2 TYPE SPECI FIC hsv-1 IgG antibody index <0.20 ai <0.89 normal AI Inter preta tion <0.9 Negat sam 0.9 - 1.0 Equiv ocal > or = 1.1 Posit sam Not Available [facility] [address], [place], [address], 03/31/2024 11:51:49 03/30/20 24 03/31/2024 HSV 1 & 2 TYPE SPECI FIC hsv-2 IgG antibody index <0.20 ai <0.89 normal AI Inter preta tion <0.9 Negat sam 0.9 - 1.0 Equiv ocal > or = 1.1 Posit sam Not Available [facility] [place], [address], 03/31/2024 11:51:49 03/30/20 24 03/31/2024 CHLAM YDIA/ GC PCR, URINE chlamydia trachomatis NEGATI VE negati ve normal Not Available [facility], [address], 03/31/2024 13:06:09 03/30/20 24 03/31/2024 CHLAM YDIA/ GC PCR, URINE neisseria gonorrhoeae NEGATI VE negati ve normal Not Available [facility] [address] [place] [address], [address], 03/31/2024 13:06:09 04/08/20 24 04/10/2024 GASTR OINTE DONTE L PANEL RT-PC R campylobacte r(jejuni, coli & upsaliensis NOT DETECT ED not detect ed normal Not Available [facility] [address] [place] [address], [address], 04/10/2024 07:36:33 04/08/20 24 04/10/2024 GASTR OINTE DONTE L PANEL RT-PC R clostridium difficile (toxin A/B) NOT DETECT ED not detect ed normal Not Available [facility] [address] [place], [place] [address] [place], [address], 04/10/2024 07:36:33 04/08/20 24 04/10/2024 GASTR OINTE DONTE L PANEL RT-PC R plesiomonas shigelloides NOT DETECT ED not detect ed normal Not Available [facility] [address] [place] [address], [address], 04/10/2024 07:36:33 04/08/20 24 04/10/2024 GASTR OINTE DONTE L PANEL RT-PC R salmonella NOT DETECT ED not detect ed normal Not Available [facility] [address] [place] [address], [address], 04/10/2024 07:36:33 04/08/20 24 04/10/2024 GASTR OINTE DONTE L PANEL RT-PC R vibrio(parah aemolyticus & vulnificus) NOT DETECT ED not detect ed normal Not Available [facility] [address] [place] [address], [address], 04/10/2024 07:36:33 04/08/20 24 04/10/2024 GASTR OINTE DONTE L PANEL RT-PC R vibrio cholerae NOT DETECT ED not detect ed normal Not Available [facility] [address] [place], [place] [address] [place], [address], 04/10/2024 07:36:33 04/08/20 24 04/10/2024 GASTR OINTE DONTE L PANEL RT-PC R yersinia enterocoliti ca NOT DETECT ED not detect ed normal Not Available [facility] [address] [place] [address], [address], 04/10/2024 07:36:33 04/08/20 24 04/10/2024 GASTR OINTE DONTE L PANEL RT-PC R enteroaggreg ative E. coli (eaec) NOT DETECT ED not detect ed normal Not Available [facility] [address] [place] [address], [address], 04/10/2024 07:36:33 04/08/20 24 04/10/2024 GASTR OINTE DONTE L PANEL RT-PC R enteropathog enic E. coli (epec) NOT DETECT ED not detect ed normal Not Available [facility] [address] [place] [address], [address], 04/10/2024 07:36:33 04/08/20 24 04/10/2024 GASTR OINTE DONTE L PANEL RT-PC R enterotoxige josi E. coli (etec) lt/st NOT DETECT ED not detect ed normal Not Available [facility] [address] [place] [address], [address], 04/10/2024 07:36:33 04/08/20 24 04/10/2024 GASTR OINTE DONTE L PANEL RT-PC R shiga-like toxin-produc ting E.coli(stec) stx1/2 NOT DETECT ED not detect ed normal Not Available [facility] [address] [place] [address], [address], 04/10/2024 07:36:33 04/08/20 24 04/10/2024 GASTR OINTE DONTE L PANEL RT-PC R shigella/ent eroinvasive E.coli (eiec) NOT DETECT ED not detect ed normal Not Available [facility] [address], [address], 04/10/2024 07:36:33 04/08/20 24 04/10/2024 GASTR OINTE DONTE L PANEL RT-PC R cryptosporid ium NOT DETECT ED not detect ed normal Not Available [facility], [address], 04/10/2024 07:36:33 04/08/20 24 04/10/2024 GASTR OINTE DONTE L PANEL RT-PC R cyclospora cayetanensis NOT DETECT ED not detect ed normal Not Available [facility] [address] [place], [address], 04/10/2024 07:36:33 04/08/20 24 04/10/2024 GASTR OINTE DONTE L PANEL RT-PC R entamoeba histolytica NOT DETECT ED not detect ed normal Not Available [facility] [address], [address], 04/10/2024 07:36:33 04/08/20 24 04/10/2024 GASTR OINTE DONTE L PANEL RT-PC R giardia lamblia NOT DETECT ED not detect ed normal Not Available [facility] [address], [address], 04/10/2024 07:36:33 04/08/20 24 04/10/2024 GASTR OINTE DONTE L PANEL RT-PC R adenovirus F 40/41 NOT DETECT ED not detect ed normal Not Available [facility] [address] [place], [address], 04/10/2024 07:36:33 04/08/20 24 04/10/2024 GASTR OINTE DONTE L PANEL RT-PC R astrovirus NOT DETECT ED not detect ed normal Not Available [facility] [address], [address], 04/10/2024 07:36:33 04/08/20 24 04/10/2024 GASTR OINTE DONTE L PANEL RT-PC R norovirus GI/gii NOT DETECT ED not detect ed normal Not Available [facility] [address] [place], [address], 04/10/2024 07:36:33 04/08/20 24 04/10/2024 GASTR OINTE DONTE L PANEL RT-PC R rotavirus A NOT DETECT ED not detect ed normal Not Available [facility] [address] [place], [place] [address], [address], 04/10/2024 07:36:33 04/08/20 24 04/10/2024 GASTR OINTE DONTE L PANEL RT-PC R sapovirus(I, II,IV & V) NOT DETECT ED not detect ed normal Not Available [facility] [address], [address], 04/10/2024 07:36:33 04/08/20 24 04/10/2024 CALPR OTECT IN STOOL calprotectin , stool 24 ug/g <50 normal <50 ug/g - Melisa l 50 - 120 ug/g - Borde rline >120 ug/g - [place] denae Re-ev aluat ion of borde rline fecal calpr otect in level s after 4-6 weeks is recom taj d to deter mine the infla mmato ry statu s. This decis ion shoul d be made by the clini claus in conju nctio n with the patie nt's clini lucero sympt oms, medic al histo ry, and other clini lucero and labor atory findi ngs. Not Available [facility] [address], [address], 04/10/2024 13:44:11 09/10/19 23 09/10/2022 XR, abdom en StudyI [facility] [place] eUID=[id number]. [id number] INTERFACE [facility] [address] [facility], [place], [address], 09/11/2022 16:34:51 09/11/19 23 09/10/2022 XR, abdom en No observ ation record ed. JOSE [facility] [address] [facility], [place], [address], 09/16/2022 09:14:20 09/11/19 23 09/10/2022 XR, abdom en [facility] [place] eUID=[id number]. [id number] INTERFACE [facility] [address] [facility], [place], [address], 09/11/2022 16:34:51 Result Notes None recorded. Problems Name Problem SNOMED Code Status Onset Date Resolution Date Notes Provider Name and Address Organization Details Recorded Time Eczema 22809740 Active 2023 Francisca Diamond APN [address] [place], [address] , [facility] - [facility] 09:59:18 History of asthma 543204270 Active 2023 in childhood only; last inhaler use was 16 yo Francisca Diamond APN [address] [place], [address], [facility] - .[facility] 10:00:45 Problem Notes None recorded. Procedures Surgical History None recorded. Imaging Results Imaging Date Name Status LastModified by [facility] Details LastModified Time 09/10/2022 XR, abdomen completed INTERFACE [facility] [address] [facility], [place], [address], 09/11/2022 16:34:51 09/10/2022 XR, abdomen completed JOSE [facility] [address], [place], [address], 09/16/2022 09:14:20 09/10/2022 XR, abdomen completed INTERFACE [facility] [address], [place], [address], 09/11/2022 16:34:51 Procedure Notes None recorded. Medical Equipment None Reported. Allergies No known drug allergies Medications Name Sig Start Date Stop Date Status Note LastModified by Organization Details LastModified Time triamcinolon e acetonide 0.1 % topical cream APPLY TWICE A DAY FOR 2 WEEKS 2023 active Not Available Not Available Not Avai lable fluticasone propionate 50 mcg/actuatio n nasal spray,suspen latasha SPRAY 2 SPRAYS INTO EACH NOSTRIL EVERY DAY 03/30 completed Not Available Not Available Not Available amoxicillin 875 mg-potassium clavulanate 125 mg tablet TAKE 1 TABLET BY MOUTH EVERY 12 HOURS 03/30 completed Not Available Not Available Not Available Vitals Date Recorded Body weight Body mass index (BMI) Percentile per age and sex Body mass index (BMI) Body height Body temperature Respiratory rate Systolic blood pressure Diastolic blood pressure Provider Name and Address Organization Details Last Updated DateTime 3 69585.0 7 g 49 % 23 kg/m2 185.42 cm 97.5 [degF] 18 /min 122 mm[Hg] 82 mm[Hg] Wendy SIDHU - .[facility] 3 15:55:40 Date Recorded Body weight Body mass index (BMI) Body height Body temperature Heart rate Respiratory rate Oxygen saturation Oxygen saturation in Arterial blood by Pulse oximetry Systolic blood pressure Diastolic blood pressure Provider Name and Address Organization Details Last Updated DateTime 4 42315.5 9 g 25.1 kg/m2 182.88 cm 96.3 [degF] 100 /min 16 /min 99 % 99 % 120 mm[Hg] 84 mm[Hg] Tiffany SIDHU - .[facility] 4 09:55:13 Social History Question Answer Notes LastModified by Organizat ion Details LastModified Time Tobacco Smoking Status Never Smoker NAHUM Merrill - .[facility] 09/10/2022 15:53:23 What Is Your Level Of Alcohol Consumption? Occasional Information not available 09/10/2022 What Is Your Level Of Caffeine Consumption? None Information not available 09/10/2022 Are You Currently Employed? 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 REGULAR Information not available 03/30/2024 Do You Or Have You Ever Used E-cigarettes Or Vape? Current User Of Electronic Cigarettes Socially Once A Week [email or web address] Information not available 03/30/2024 What Is The Highest Grade Or Level Of School You Have Completed Or The Highest Degree You Have Received? OH47206-8 Student [employer] [facility] Information not available 03/30/2024 RISK LEVEL - Segmentation Level 1 - Healthy [email or web address] Information not available 10/21/2022 What Was The Date Of Your Most Recent Tobacco Screening? 03/30/2024 [email or web address] Information not available 03/30/2024 How Many Children Do You Have? 0 Information not available 03/30/2024 Are You Sexually Active? Yes Information not available 03/30/2024 Do You Use Any Illicit Or Recreational Drugs? No Information not available 03/30/2024 Do You Or Have You Ever Used Any Other Forms Of Tobacco Or Nicotine? Yes [email or web address] Information not available 03/30/2024 How Many Years Have You Used E-cigarettes Or Vape? 5 [email or web address] Information not available 03/30/2024 Sex: Unknown Functional Status Question Answer Note LastModified by Organizat ion Details LastModified Time What is your exercise level? Moderate gym 4 to 5x per week: weightlifti ng; runs about 3x/week 2 miles (15 min) Information not available 03/30/2024 Mental Status None recorded. Family History Relationship Description Onset Age of this Age Resolved Age Notes LastModified by Organization Details LastModified Time Mother Hyperlipidem ia [email or web address] Not available 2023 09:53:15 Father No current problems or disability [email or web address] Not available 03/30 09:53:21 Notes:denied fhx colon cance r Medical History No medical history recorded. Immunizations Vaccine Type Date Status Note Provider Nam e and Address Organization Details Recorded Time HPV9 9 completed NAHUM Gaitan - .[facility] 03/30/2024 09:49:19 HPV9 8 completed NAHUM Gaitan - .[facility] 03/30/2024 09:49:19 HPV9 8 completed NAHUM Gaitan - .[facility] 03/30/2024 09:49:19 Influenza, live, trivalent, intranasal 3 completed NAHUM Gaitan - .[facility] 03/30/2024 09:49:19 COVID-19, mRNA, LNP-S, PF, 100 mcg/0.5mL dose or 50 mcg/0.25mL dose 1 completed NAHUM Gaitan - .[facility] 03/30/2024 09:49:19 COVID-19, mRNA, LNP-S, PF, 30 mcg/0.3 mL dose 1 completed NAHUM Gaitan - .[facility] 03/30/2024 09:49:19 COVID-19, mRNA, LNP-S, PF, 30 mcg/0.3 mL dose 1 completed NAHUM Gaitan - .[facility] 03/30/2024 09:49:19 Tdap 4 completed NAHUM Gaitan - .[facility] 03/30/2024 09:49:19 Novel Ltlxmzqgt-Y4Q5-58, all formulations 9 completed NAHUM Gaitan - .[facility] 03/30/2024 09:49:19 Novel Gdkmrsrrs-H0L3-70, all formulations 9 completed NAHUM Gaitan - .[facility] 03/30/2024 09:49:19 Influenza, split virus, trivalent, PF 0 completed NAHUM Gaitan - .[facility] 03/30/2024 09:49:19 Influenza, split virus, trivalent, PF 4 completed NAHUM Gaitan - .[facility] 03/30/2024 09:49:19 Hep A, ped/adol, 2 dose 2 completed Tiffany Aleksandar null, [place] - .[facility] 03/30/2024 09:49:19 Hep A, ped/adol, 2 dose 3 completed Tiffany Aleksandar null, [place] - .[facility] 03/30/2024 09:49:19 meningococcal MCV4P 4 completed Tiffany Aleksandar null, [place] - .[facility] 03/30/2024 09:49:19 meningococcal MCV4P 9 completed Tiffany Aleksandar null, [place] - .[facility] 03/30/2024 09:49:19 Influenza, split virus, quadrivalent, PF 9 completed Tiffany Aleksandar null, [place] - .[facility] 03/30/2024 09:49:19 Influenza, split virus, quadrivalent, PF 8 completed Tiffany Aleksandar null, [place] - .[facility] 03/30/2024 09:49:19 Influenza, split virus, quadrivalent, PF 6 completed Tiffany Aleksandar null, [place] - .[facility] 03/30/2024 09:49:19 Influenza, split virus, quadrivalent, PF 5 completed Tiffany Aleksandar null, [place] - .[facility] 03/30/2024 09:49:19 Influenza, split virus, quadrivalent, PF 7 completed Tiffany Aleksandar null, [place] - .[facility] 03/30/2024 09:49:19 influenza nasal, unspecified formulation 2 completed Tiffany Aleksandar null, [place] - .[facility] 03/30/2024 09:49:19 influenza nasal, unspecified formulation 1 completed Tiffany Aleksandar null, [place] - .[facility] 03/30/2024 09:49:19 Past Encounters Encounter ID Performer Location Encounter Start Date Encounter Closed Date Diagnosis/Indication Diagnosis SNOMED-CT Code Diagnosis ICD10 Code Diagnosis Note [id number] [facility] [address] [address] [place] [phone] 09/10/2022 15:47:00 09/10/2022 16:34:29 Diarrhea 83172591 R19.7 with 1 episode of bleeding1 episode/da yocc solid stoolbwsto ol studieskub may need colonoscop y [id number] Francisca Magallon_ 477[address] [facility] [address] NAHUM MAGALLON [id number] 03/30/2024 09:46:07 03/30/2024 10:29:31 Adult health examination 587799061 Z00.00 He wants to speak to mom about Tdap firstAvoid electronic cigarettes Increase cardio exercisest retching for hunched shoulders Diarrhea 86217147 R19.7 Probiotics At [facility] risk of sexually transmitted infection 253207334 Z20.2 Health Concerns Section Related Observation LastModified by Organization Detai ls LastModified Time None Recorded Concern Status LastModified by Organization Details LastModified Time None Recorded Advance Directives Directive None Recorded Payers Encounter Date Sequence Insurance Name Policy Number Policy Mello Covered Member ID Mello Member ID Guarantor Name 09/10/2022 1 [employer] [employer] ([employer]O) [id number] Laura Bean [id number] Ericgerda Bean 03/30/2024 1 [employer] [employer] [place] [id number] Laura Bean [id number] 21 Eric Jason Notes Date Note Type Note Provider Name and Address Organization Details Recorded Time 09/10/2022 text/html DiarrheaReported bypatient.Quality:freq uent Duration:began 4 months ago Onset/Timin-3 times a day Associated Symptoms:no joint pain; no weight loss;blood in stool(1 x) Antoni Madrid MD [address] [facility], [place], [address], [facility] - .[facility] 09/10/2022 16:20:31 03/30/2024 text/html New patient here for physical and stomach issue. 08/2022 was having diarrhea; positive for intestinal bacteria; was in [place]. Feels the diarrhea has not completely resolved. Occurs 3 x a week, used to be daily during active infection. Feels lydia. Francisca Diamond APN [address] [place], [address], [facility] - .[facility] 03/30/2024 10:33:11
--- OUTSIDE RECORDS SUMMARY | 2024-12-20 07:58 | XMS_ITS | Clinical Summary ---
Author Organization [facility] Address [address] [place] [id number] Care Team Providers Care Power Transformer Repairer Name Role Phone Pcp, No Primary Care Provider Unavailabl e Allergies No known active allergies Medications No known medications Immunizations Immunization Administration Dates Next Due SARS-COV-2 (COVID-19/PFIZER) mRNA [id number] (PF) IM (LNP-S) EUA (purple) 01/10/2021,12/23/2020 Social History Tobacco Use Types Packs/Day Years Used Date Smoking Tobacco: Never Assessed Sex and Gender Information Value Date Recorded Sex Assigned at Male 02/28/2024 2:52 PM EDT Legal Sex Male 5:42 PM EDT Gender Identity Male 02/28/2024 2:52 PM EDT Sexual Orientation Straight 02/28/2024 2: 52 PM EDT Last Filed Vital Signs Vital Sign Reading Time Taken Comments Blood Pressure 125/73 02/28/2024 2:59 PM EDT Pulse 76 02/28/2024 2:59 PM EDT Temperature 36.7 ??C (98 ??F) 02/28/2024 2:59 PM EDT Respiratory Rate 16 02/28/2024 2:59 PM EDT Oxygen Saturation 100% 02/28/2024 2:59 PM EDT Inhaled Oxygen Concentration - - Weight 76.3 kg (168 lb 3.4 oz) 01/24/2021 9:34 P M EDT Height 182.9 cm (6') 01/24/2021 9:04 PM EDT Body Mass Index 22.81 01/24/2021 9:04 PM EDT Plan of Treatment Health Maintenance Due Date Last Done Comments Preventative/Well Visit 2004 [facility] ANNUAL DEPRESSION SCREENING 2014 [facility] BLOOD PRESSURE 140/90 OR UNDER 2020 [facility] BMI DOCUMENTED 2020 [facility] TOBACCO CESSATION COUNSELING 2020 HEPATITIS C SCREENING 2020 [facility] ACCESS TO PREVENTIVE/AMBULATORY VISIT 2022 INFLUENZA VACCINE 03/31/2024 06/13/2019, , 07/20/2017, Additional history exists COVID VACCINE ( season) 2024 01/10/2021, 12/23/2020 Pneumococcal Vaccine: Ped & Adult <50 Aged Out No longer eligible based on patient's age to complete this topic Insurance [employer] OUT OF STATE [employer] OUT OF STATE Care Teams Power Transformer Repairer Relationship Specialty Start Date End Date Pcp, No PCP - General 12/23/20
--- OUTSIDE RECORDS SUMMARY | 2024-12-20 07:58 | XMS_ITS | Clinical Summary ---
Author Organization [facility] Address [address] [place] [address] Care Team Providers Care Structural Worker Name Role Phone Unavailable Primary Care Provider Unavailabl e Allergies No known active allergies Medications No known medications Active Problems No known active problems Social History Tobacco Use Types Packs/Day Years Used Date Smoking Tobacco: Never Assessed Sex and Gender Information Value Date Recorded Sex Assigned at Not on file Legal Sex Male 18:27 EST Gender Identity Not on file Sexual Orientation Not on file Last Filed Vital Signs Vital Sign Reading Time Taken Comments Blood Pressure 150/88 08/25/2022 1855 EST Pulse 71 08/25/2022 1855 EST Temperature 36.6 ??C (97.9 ??F) 08/25/2022 1855 EST Respiratory Rate 15 08/25/2022 1855 EST Oxygen Saturation 100% 08/25/2022 1855 EST Inhaled Oxygen Concentration - - Weight 77.1 kg (170 lb) 08/25/2022 1855 EST Height 185.4 cm (6' 1 ) 08/25/2022 1855 EST Body Mass Index 22.43 08/25/2022 1855 EST Plan of Treatment Health Maintenance Due Date Last Done Comments Wellness Exam 2005 Yearly Depression Screen 2014 Meningococcal B Vaccine (1 of 2 - Standard) 2018 TETANUS / TDAP SHOT 2021 COVID-19 (SARS-CoV-2) Vaccine ( season) 2024 08/19/2021, 01/10/2021, 12/23/2020 FLU VACCINE (Season Ended) 05/01/202506/13, 06/16/2018, 07/20/2017, Additional history exists Meningococcal Vaccine Completed 02/22/2019, 014 Pneumococcal Immunization 0-49 Aged Out No longer eligible based on patient's age to complete this topic Insurance [facility]
--- OUTSIDE RECORDS SUMMARY | 2024-12-20 07:58 | XMS_ITS | Clinical Summary ---
Author Organization [facility] Address [address] [place] [address], [address] Care Team Providers Care Auto Design Detailer Name Role Phone Fabio Story MD Primary Care Provider [phone] Social History Tobacco Use Types Packs/Day Years Used Date Smoking Tobacco: Never Assessed Sex and Gender Information Value Date Recorded Sex Assigned at Not on file Gender Identity Not on file Sexual Orientation Not on file Plan of Treatment Not on file Care Teams Auto Design Detailer Relationship Specialty Start Date End Date Fabio Story MD [address] [place] [id number] PCP - General 05/30/19
== END 2024-12-20 07:53 | disposition home or self-care (01) ==
LOC: HO.UMASIMG 07:52
PROVIDERS: Visit Provider Family Medicine
DX: D29.22 Benign neoplasm of left testis (principal); D48.5 Neoplasm of uncertain behavior of skin
CPT/HCPCS: 76870

== ENCOUNTER → 2024-12-20 13:00 | Outpatient (BNV) | payer BC, SELFPAY | PROVIDERS: Visit Provider Radiology Diagnostic Radiology | DX: D29.22 Benign neoplasm of left testis (principal) | CPT/HCPCS: 76870; 93975 ==